=== PATIENT | female | born 1980 | race Caucasian/White ===

== ENCOUNTER 2021-06-13 10:52 | Emergency (ER) | payer MEDICAID, SELFPAY ==
[2021-06-13 11:17] VITALS: BP 138/84; PULSE 83; RESP 16; TEMP 36.9; O2SAT 98; BMI 38.7
--- NOTE | 2021-06-13 11:27 | XRR_ITS ---
PROCEDURE INFORMATION: Exam: XR Left Knee Exam date and time: 06/13/2021 11:27 AM Age: 40 years old Clinical indication: Pain; Knee; Left; Additional info: pop . , Pain TECHNIQUE: Imaging protocol: XR Left knee. Views: 3 views. Total images: 3 COMPARISON: No relevant prior studies available. FINDINGS: Bones/joints: Minimal marginal osteophytes are noted. No acute fracture nor subluxation. No osseous erosion nor periosteal reaction. Soft tissues: Normal. XR/XR knee LT 3V* [id number] IMPRESSION: No acute osseous pathology. Radiation Dose CTDIVOL = (mGy): DLP = (mGy-cm)
--- NOTE | 2021-06-13 11:55 | ED_ITS ---
HPI - Extremity Problem General: Chief complaint: Extremity Injury, Lower Stated complaint: left knee injury Time Seen by Provider: 06/13/21 11:27 History of Present Illness: HPI Narrative: Patient states she has a history of bilateral knee problems both of her knees have been scoped. States that last night she felt her knee start her little bit and then when she tried to get up this morning after sleeping last night she was not able to bear weight after she felt a pop in that knee. She complains about pain throughout the knee area no injury that she is aware of presently. MD Complaint: joint pain Onset (ago): hour(s) Pain Consistency: constant Location: left and knee Severity scale (1-10): 5 Quality: aching Radiation: none Relieving factors: immobilization Exacerbating factors: range of motion and weight bearing Associated symptoms: Reports no associated symptoms; Deny chest pain, fever(s) or rash Review of Systems Const: Denies: fever(s), chills or body aches Eyes: Denies: change in vision or blurry vision ENMT: Denies: throat pain or nasal congestion Card: Denies: chest pain or dyspnea on exertion Resp: Denies: dyspnea, productive cough or non-productive cough GI: Denies: abdominal pain, nausea or vomiting Musc: Reports: joint pain (Left knee, felt a pop this morning after knee was hurting some last night.); Denies: extremity pain Skin/Breast: Denies: rash Neuro: Denies: headache(s) Psych: Denies: anxiety or depression Rico/Lymph: Denies: easy bruising Physical Exam Const: COMMON NORMALS: no acute distress GENERAL APPEARANCE: cooperative Resp: COMMON NORMALS: normal respiratory effort Extremity: LEFT LOWER EXTREMITY: Yes knee joint (Tenderness throughout the joint mild swelling noted.) Left knee: Yes ROM (Limited due to pain.) Course Vital Signs: Vital signs: Vital Signs Temperature 98.5 F 06/13/21 11:17 Pulse Rate 83 06/13/21 11:17 Respiratory Rate 16 06/13/21 11:17 Blood Pressure 138/84 06/13/21 11:17 Pulse Oximetry 98 06/13/21 11:17 Coding Level of Care Code ED [employer] Staff Officer for Gera Castaneda
[2021-06-13] MEDS: CELEcoxib 200 mg Capsule 400 MG PO (12:26)
[2021-06-13 13:36] VITALS: RESP 16; TEMP 36.9; O2SAT 98
--- NOTE | 2021-06-14 09:11 | DCPLANNER ---
credit union manager had message to schedule a follow up appointment for patient with ortho. credit union manager called the ortho clinic, spoke with Daysi, gave clinic patients information. credit union manager was told that patients information would be printed and reviewed. Clinic will call patient with appointment information.
--- NOTE | 2021-06-15 11:14 | DCPLANNER ---
Patient has a follow up appointment scheduled for , June 16, 2021 at 10:00 with Nohelia SIDDIQUI. Clinic will call patient with appointment information.
--- NOTE | 2021-09-04 16:35 | DCPLANNER ---
Patient had a follow up appointment scheduled with ortho - patient did attend appointment.
== END 2021-06-13 13:36 | disposition home or self-care (01) ==
PROVIDERS: Emergency Provider Nurse Practitioner Family
DX: M25.562 Pain in left knee (principal)
CPT/HCPCS: 29530; 73562; 99283; E0114

== ENCOUNTER 2021-06-16 15:16 | Outpatient (CLI) | payer MEDICAID, SELFPAY | END 2021-06-16 15:17 | disposition home or self-care (01) | LOC: SPT 15:16 | PROVIDERS: Visit Provider Physician Assistant | DX: Z46.89 Encounter for fitting and adjustment of other specified devices (principal); S89.90XA Unspecified injury of unspecified lower leg, initial encounter; X58.XXXA Exposure to other specified factors, initial encounter | CPT/HCPCS: 97760; L1812 ==

== ENCOUNTER 2021-08-26 14:57 | Outpatient (CLI) | payer MEDICAID, SELFPAY ==
--- NOTE | 2021-08-26 16:00 | MR_ITS ---
WS: [id number] MRI LEFT KNEE NONCONTRAST TECHNIQUE: Axial PD, coronal PD fat sat, coronal PD, sagittal PD, and sagittal PD fat-sat images obta ined. CLINICAL INFORMATION: M17.12 - Unilateral primary osteoarthritis, left knee COMPARISON: None. FINDINGS: Distal quadriceps and patella tendons are intact. Hypertrophic patella. Normal ACL and PCL. Hypertrop hic patella. Chronic thinning of the medial and lateral meniscus. No acute appearing meniscal tears. Medial and lateral collateral ligaments appear intact. Moderate chondromalacia involving the medial a nd lateral joint compartments advanced for patient this age. Tiny amount of edema and subchondral cys tic change involving the medial tibial plateau. Hypertrophic changes along the joint line. Moderate t o advanced chondromalacia patella. Normal medial and lateral patellar retinaculum. Normal popliteal f nicole. MR/MR knee LT wo con* [id number] IMPRESSION: 1. Moderate tricompartmental arthritis with joint space narrowing. 2. Normal ACL and PCL. 3. Chronic thinning of the medial and lateral meniscus. No acute appearing men iscal tears. 4. 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 5. Grade 3 chondromalacia patella. No subchondral edema. 6. Normal popliteal fossa. Outbridge grading: grade III: partial-thickness cartilage loss with focal ulcer ation
== END 2021-08-26 14:58 | disposition home or self-care (01) ==
LOC: RADSHAW 16:04
PROVIDERS: Visit Provider Physician Assistant
DX: M17.12 Unilateral primary osteoarthritis, left knee (principal); M22.42 Chondromalacia patellae, left knee
CPT/HCPCS: 73721